=== PATIENT | female | born 1970 | race Two or more races ===

== ENCOUNTER 2019-03-27 08:40 | Day surgery (SDC) | payer OTHER ==
[~2019-03-27 08:40] MED LIST: TOPROL XL25 M1 PO
== END 2019-03-27 16:30 | disposition home or self-care (01) ==
LOC: CIR.AMB 08:40
DX: N84.0 Polyp of corpus uteri (principal)

== ENCOUNTER 2021-03-19 14:49 | Outpatient (CLI) | payer OTHER | END 2021-03-19 15:04 | disposition home or self-care (01) | LOC: RAD 14:49 | PROVIDERS: ATTEND Obstetrics & Gynecology | DX: R05.8 Other specified cough (principal) ==

== ENCOUNTER → 2025-05-08 | Emergency (ER) | payer OTHER ==
[~2025-05-08] VITALS: Ht 177.8 cm; Wt 77.1 kg
[~2025-05-08] MED LIST changes: +AMOX1TAB5 PO; +BUTALB/ACETAMINOPHEN/CAFFEINE 1 TAB TABLET PO ONE; +HYDROCHLOROTHIA25 MG PO; +PANTOPRAZOLE SO40 M2 PO; +PEPCID AC20 MG PO
[2025-05-08 12:40] LABS: BASO % 0.2 % (0.1-1.2); EOS # 0.11 (0.04-0.54); EOS % 1.0 % (0.7-7.0); LYMPH # 2.00 (1.18-3.74); LYMPH % 18.9 % (19.3-53.1); MEAN PLATELET VOLUME 10.50 fl (9.4-12.4); MONO # 0.72 (0.24-0.82); MONO % 6.8 % (4.7-12.5); NEUT # 7.70 (1.56-6.13); NEUT % 72.8 % (34.0-71.1); RED CELL DISTRIBUTION WIDTH 12.0 % (11.6-14.4)
[2025-05-08 13:05] LABS: COVID-19 AG NEGATIVE (NEGATIVE)
== END | disposition home or self-care (01) ==
LOC: ER 10:46
PROVIDERS: General Practice
DX: J32.0 Chronic maxillary sinusitis (principal); Z20.822 Contact with and (suspected) exposure to COVID-19; I10 Essential (primary) hypertension; Z88.8 Allergy status to other drugs, medicaments and biological substances; Z87.09 Personal history of other diseases of the respiratory system